=== PATIENT | male | born 2000 | race Caucasian/White ===

== ENCOUNTER 2022-01-27 11:23 | Emergency (ER) | payer MEDICAID ==
[~2022-01-27] VITALS: Ht 172.7 cm; Wt 115.7 kg
[2022-01-27 11:40] VITALS: BP 147/89
--- NOTE | 2022-01-27 12:46 | NUR ---
Pt taken to bed 6.
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
[2022-01-27] MEDS ORDERED: NAPR-54 PO (13:13)
[2022-01-27] MEDS ORDERED: KETOROLAC 30 MG/ML VIAL IM ONE (13:15)
[2022-01-27 13:58] VITALS: BP 134/61
--- NOTE | 2022-01-27 13:58 | NUR ---
Patient discharged with v/s stable. Written and verbal after care instructions ABOUT SUBUNGUAL HEMATOMA, CRUSH INJURY OF THE HAND, CONTUSION given and explained. Patient alert, oriented and verbalized understanding of instructions. Ambulatory with to car. All questions addressed prior to discharge. ID band removed. Patient advised to follow up with PMD. Rx of NAPROXEN given. Patient educated on indication of medication including possible reaction and side effects. Opportunity to ask questions provided and answered.
== END 2022-01-27 13:58 | disposition home or self-care (01) ==
LOC: MED 11:23
DX: S60.111A Contusion of right thumb with damage to nail, initial encounter (principal); W23.0XXA Caught, crushed, jammed, or pinched between moving objects, initial encounter; Y93.89 Activity, other specified; Y92.89 Other specified places as the place of occurrence of the external cause; Y99.8 Other external cause status
CPT/HCPCS: 73140; 96372; 99283; J1885

== ENCOUNTER 2022-02-01 12:07 | Emergency (ER) | payer MEDICAID ==
[~2022-02-01] VITALS: Ht 172.7 cm; Wt 116.6 kg
[~2022-02-01 12:07] MED LIST: NAPR-54 PO
[2022-02-01 12:09] VITALS: BP 143/80
--- NOTE | 2022-02-01 12:09 | NUR ---
Taylor lloyd in EDM - 02/01/22 at 1327 by [email or web address] 21Y MALE BIB SELF DUE TO 04/12 R THUMB PAIN/SWELLING S/P SMASHING FINGER ON METAL CRATE AT WORK X TODAY.
--- NOTE | 2022-02-01 12:09 | NUR ---
21Y MALE BIB SELF DUE TO 8/10 R THUMB PAIN/SWELLING S/P SMASHING FINGER ON METAL CRATE AT WORK X 5 DAYS.
[2022-02-01] MEDS ORDERED: BACITRACIN OINT 500 UNITS/GM PKT TP ONE (12:20)
[2022-02-01] MEDS ORDERED: LIDOCAINE MPF 1% 10 MG/ML VIAL INJ ONE (12:20)
[2022-02-01] MEDS ORDERED: BACI28.43 TP (13:17)
[2022-02-01 13:29] VITALS: BP 146/57
== END 2022-02-01 13:29 | disposition home or self-care (01) ==
LOC: MED 12:07
DX: S60.111A Contusion of right thumb with damage to nail, initial encounter (principal); F17.210 Nicotine dependence, cigarettes, uncomplicated; F12.90 Cannabis use, unspecified, uncomplicated; Z79.899 Other long term (current) drug therapy; W22.8XXA Striking against or struck by other objects, initial encounter; Y93.89 Activity, other specified; Y92.89 Other specified places as the place of occurrence of the external cause; Y99.8 Other external cause status
CPT/HCPCS: 11740; 99284; J2001

== ENCOUNTER 2022-10-14 11:34 | Emergency (ER) | payer MEDICAID ==
[~2022-10-14] VITALS: Ht 172.7 cm; Wt 117.9 kg
[~2022-10-14 11:34] MED LIST changes: +BACI28.43 TP
--- NOTE | 2022-10-14 11:50 | NUR ---
r posterior hand wound irrigated with solution of betadine X normal saline. + cms.
[2022-10-14 11:59] VITALS: BP 124/65
[2022-10-14] MEDS ORDERED: LIDOCAINE MPF 1% 10 MG/ML VIAL INJ ONE (12:15)
[2022-10-14] MEDS ORDERED: BACITRACIN OINT 500 UNITS/GM PKT TP ONE (13:20)
[2022-10-14] MEDS ORDERED: KETOROLAC 30 MG/ML VIAL IM ONE (13:25)
[2022-10-14] MEDS ORDERED: IBUP-2213 PO (13:26)
[2022-10-14] MEDS ORDERED: AMOX-999 PO (13:26)
[2022-10-14] MEDS ORDERED: BACI-416 TP (13:26)
--- NOTE | 2022-10-14 13:29 | NUR ---
NON ADHERENT APPLIED TO R POSTERIOR HAND. + CMS
--- NOTE | 2022-10-14 13:54 | NUR ---
Patient discharged with v/s stable. Written and verbal after care instructions ABOUT LACERATION CARE AND ANIMAL BITE given and explained. Patient alert, oriented and verbalized understanding of instructions. Ambulatory with steady gait. All questions addressed prior to discharge. ID band removed. Patient advised to follow up with PMD. Rx of AUGMENTIN, BACITRACIN AND IBUPROFEN given. Patient educated on indication of medication including possible reaction and side effects. Opportunity to ask questions provided and answered.
== END 2022-10-14 13:54 | disposition home or self-care (01) ==
LOC: MED 11:34
DX: S61.411A Laceration without foreign body of right hand, initial encounter (principal); W54.0XXA Bitten by dog, initial encounter; Y93.89 Activity, other specified; Y92.89 Other specified places as the place of occurrence of the external cause; Y99.8 Other external cause status
CPT/HCPCS: 12002; 90471; 90715; 96372; 99284; J1885; J2001

== ENCOUNTER 2022-10-27 10:57 | Emergency (ER) | payer MEDICAID ==
[~2022-10-27] VITALS: Ht 172.7 cm; Wt 119.3 kg
[~2022-10-27 10:57] MED LIST changes: +AMOX-999 PO; +BACI-416 TP; +IBUP-2213 PO
[2022-10-27 11:02] VITALS: BP 137/78
--- NOTE | 2022-10-27 11:05 | NUR ---
PT AMBULATED TO BED 10 STEADY/EVEN GAIT.
--- NOTE | 2022-10-27 11:46 | NUR ---
ASSUMED PATIENT CARE, NURSING ASSESSMENT COMPLETED.
[2022-10-27 11:48] VITALS: BP 122/65
--- NOTE | 2022-10-27 11:48 | NUR ---
DISPO AND MEDICAL DECISION MAKING, DC HOME WITH E-RX AND AFTERCARE INSTRUCTIONS, UNDERSTOOD BY PATIENT WELL. SUTURE SITE REMOVAL INTACT.
== END 2022-10-27 11:48 | disposition home or self-care (01) ==
LOC: MED 10:57
DX: S61.451D Open bite of right hand, subsequent encounter (principal); Z48.02 Encounter for removal of sutures; Z79.1 Long term (current) use of non-steroidal anti-inflammatories (NSAID); Z79.2 Long term (current) use of antibiotics; W54.0XXD Bitten by dog, subsequent encounter
CPT/HCPCS: 99281

== ENCOUNTER 2023-06-28 11:37 | Emergency (ER) | payer MEDICAID, OTHER ==
[~2023-06-28] VITALS: Ht 172.7 cm; Wt 117.9 kg
[~2023-06-28 11:37] MED LIST changes: -BACI-416 TP; +BACI-418 TP
[2023-06-28 11:52] VITALS: BP 120/63; PULSE 77; RESP 16; TEMP 97.2; O2SAT 98
[2023-06-28 12:00] VITALS: BP 120/63; PULSE 77; RESP 16; TEMP 97.2; O2SAT 98
[2023-06-28] MEDS ORDERED: DICYCLOMINE HCL LIQUID 20 MG, ALUMINUM HYD/MAG/SIMETHICONE 30 ML, LIDOCAINE VISCOUS 2% ... PO ONE ×3 (12:00)
[2023-06-28] MEDS ORDERED: ALUMINUM HYD/MAG/SIMETHICONE 30 ML UDC ONE (12:19)
[2023-06-28] MEDS ORDERED: DICYCLOMINE HCL LIQUID 10 MG/5 ML UDC ONE (12:19)
[2023-06-28 12:38] LABS: ALANINE AMINOTRANSFERASE 208 U/L (12-78); ALBUMIN 3.8 g/dL (3.4-5.0); ALKALINE PHOSPHATASE 115 U/L (50-136); ANION GAP 12.7 (8-16); ASPARTATE AMINOTRANSFERASE 67 U/L (15-37); CALCIUM 8.5 mg/dL (8.5-10.1); CARBON DIOXIDE 26.2 mmol/L (21-32); CHLORIDE 104 mmol/L (98-107); CREATININE 0.9 mg/dL (0.6-1.3); GFR ARICAN-AMERICAN 132 mL/min (>90); GFR NON ARICAN-AMERICAN 109 mL/min (>90); GLUCOSE 97 mg/dL (74-106); LIPASE 38 U/L (16-77); POTASSIUM 3.9 mmol/L (3.5-5.1); SODIUM SERUM 139 mmol/L (136-145); TOTAL BILIRUBIN 0.7 mg/dL (0.0-1.0); TOTAL PROTEIN, SERUM 7.4 g/dL (6.4-8.2); UREA NITROGEN, BLOOD 12 mg/dL (7-18)
[2023-06-28 14:13] LABS: BASOPHILS % (AUTO) 0.4 % (0.0-2.0); EOSINOPHILS # (AUTO) 0.1 K/uL (0-0.4); EOSINOPHILS % (AUTO) 1.5 % (0.0-4.0); HEMATOCRIT 44.8 % (36-52); HEMOGLOBIN 15.1 g/dL (12.0-18.0); LYMPHOCYTES # (AUTO) 2.1 K/uL (2.0-11.5); MEAN CORPUSCULAR HEMOGLOBIN 29 pg (27-31); MEAN CORPUSCULAR HGB CONC 34 g/dL (33-37); MEAN CORPUSCULAR VOLUME 86.1 fL (80-94); MONOCYTES # (AUTO) 0.7 K/uL (0.8-1.0); MONOCYTES % (AUTO) 8.4 % (1.7-9.3); NEUTROPHILS # (AUTO) 5.1 K/uL (1.8-7.7); NEUTROPHILS % (AUTO) 63.7 % (42.2-75.2); PLATELET COUNT (AUTO) 222 K/uL (140-450); RED CELL DISTRIBUTION WIDTH 14.2 % (11.6-13.7)
[2023-06-28] MEDS ORDERED: IBUP-2213 PO (14:44)
== END 2023-06-28 14:43 | disposition home or self-care (01) ==
LOC: MED 11:37
DX: R10.13 Epigastric pain (principal); Z79.899 Other long term (current) drug therapy
CPT/HCPCS: 36415; 71045; 80053; 83690; 84484; 85025; 93005; 99285

== ENCOUNTER 2023-08-20 10:10 | Emergency (ER) | payer OTHER ==
[~2023-08-20] VITALS: Ht 172.7 cm; Wt 120.7 kg
[2023-08-20 10:49] VITALS: BP 127/70; PULSE 100; RESP 17; TEMP 97.8; O2SAT 95
[2023-08-20 12:25] LABS: BASOPHILS # (AUTO) 0.1 K/uL (0.00-0.22); BASOPHILS % (AUTO) 0.7 % (0.0-2.0); EOSINOPHILS # (AUTO) 0.4 K/uL (0-0.4); EOSINOPHILS % (AUTO) 5.9 % (0.0-4.0); HEMATOCRIT 47.3 % (36-52); HEMOGLOBIN 16.4 g/dL (12.0-18.0); LYMPHOCYTES # (AUTO) 2.1 K/uL (2.0-11.5); LYMPHOCYTES % (AUTO) 28.8 % (20.5-51.1); MEAN CORPUSCULAR HEMOGLOBIN 30 pg (27-31); MEAN CORPUSCULAR HGB CONC 35 g/dL (33-37); MEAN CORPUSCULAR VOLUME 85.1 fL (80-94); MONOCYTES # (AUTO) 0.9 K/uL (0.8-1.0); MONOCYTES % (AUTO) 12.2 % (1.7-9.3); NEUTROPHILS # (AUTO) 3.9 K/uL (1.8-7.7); NEUTROPHILS % (AUTO) 52.4 % (42.2-75.2); PLATELET COUNT (AUTO) 241 K/uL (140-450); RED BLOOD CELL COUNT(AUTO) 5.56 MIL/uL (4.20-6.10); RED CELL DISTRIBUTION WIDTH 13.8 % (11.6-13.7); WHITE BLOOD COUNT (AUTO) 7.4 K/uL (4.8-10.8)
[2023-08-20 12:34] LABS: ANION GAP 16.3 (8-16); CALCIUM 9.5 mg/dL (8.5-10.1); CARBON DIOXIDE 25.5 mmol/L (21-32); CREATININE 0.9 mg/dL (0.6-1.3); POTASSIUM 3.8 mmol/L (3.5-5.1)
[2023-08-20] MEDS ORDERED: KETOROLAC 30 MG/ML VIAL IM ONE (12:45)
[2023-08-20] MEDS ORDERED: NAPR-54 PO (12:50)
[2023-08-20] MEDS ORDERED: LID5T TP (12:50)
[2023-08-20] MEDS ORDERED: ACET-10509 PO (12:50)
[2023-08-20 13:27] VITALS: O2SAT 95
[2023-08-20 13:48] LABS: APPEARANCE,URINE CLEAR (CLEAR); BILIRUBIN,URINE NEGATIVE (NEGATIVE); BLOOD, URINE NEGATIVE (NEGATIVE); COLOR,URINE YELLOW (YELLOW); LEUKOCYTE ESTERASE ,URINE NEGATIVE (NEGATIVE); NITRITE, URINE NEGATIVE (NEGATIVE); PH,URINE 6.5 (5.0-9.0); PROTEIN,URINE NEGATIVE (NEGATIVE); UGLUCOSE NEGATIVE (NEGATIVE); UROBILINOGEN,URINE 0.2 EU/dL (0.2 - 1)
== END 2023-08-20 13:18 | disposition home or self-care (01) ==
LOC: MED 10:10
DX: S39.011A Strain of muscle, fascia and tendon of abdomen, initial encounter (principal); X58.XXXA Exposure to other specified factors, initial encounter; Y93.89 Activity, other specified; Y92.89 Other specified places as the place of occurrence of the external cause; Y99.8 Other external cause status
CPT/HCPCS: 36415; 76705; 80048; 81003; 83690; 85025; 96372; 99285; J1885